=== PATIENT | female | born 1970 | race Caucasian/White ===

== ENCOUNTER 2018-01-09 11:01 | Outpatient (CLI) | payer MEDICAID ==
[2018-01-09] MEDS ORDERED: MIDAZOLAM 2 MG/2 ML VIAL IVP PRN (11:13)
[2018-01-09] MEDS ORDERED: fentaNYL 100 MCG/2 ML INJ IVP PRN (11:13)
[2018-01-09] MEDS ORDERED: MEPERIDINE 25 MG/ML SYR IVP PRN (11:13)
[2018-01-09] MEDS ORDERED: NALOXONE HCL 0.4 MG/ML INJ IVP PRN (11:13)
[2018-01-09] MEDS ORDERED: FLUMAZENIL 0.5 MG/5 ML MDV IVP PRN (11:13)
[2018-01-09] MEDS ORDERED: NS 1,000 ML IV SCH (11:15)
--- NOTE | 2018-01-09 12:58 | PDGENHP ---
History & Physical Chief Complaint: neck and back pain, claustrophobic Cardiorespiratory Assessment: heart regular, lungs clear
--- NOTE | 2018-01-09 12:58 | PDPROPOC ---
Sedation Plan of Care Sedation Plan of Care: vital signs stable, mental status noted, patient educated of risks, benefits, alternatives, patient can tolerate sedation ASA Classification: ASA 1 Planned drugs: fentanyl, midazolam Mallampati Score: Class 1 Mallampati Reference Image: Patient passed 3-3-2 rule?: Yes
[2018-01-09 15:29] VITALS: BP 94/79
== END 2018-01-09 15:47 | disposition home or self-care (01) ==
LOC: FIMAGING 11:01
DX: M51.34 Other intervertebral disc degeneration, thoracic region (principal); N28.1 Cyst of kidney, acquired; M50.30 Other cervical disc degeneration, unspecified cervical region; M47.892 Other spondylosis, cervical region; Z98.1 Arthrodesis status
CPT/HCPCS: J2250; J2310; J3010